=== PATIENT | female | born 1995 | race Caucasian/White ===

== ENCOUNTER 2016-09-28 20:03 | Emergency (ER) | payer SELFPAY ==
[~2016-09-28] VITALS: Ht 157.5 cm; Wt 46.6 kg
[~2016-09-28 20:03] MED LIST: AMOXIL400 MG/5 M OR; KEFLEX250 MG/5 M OR; NO HOME MEDS; TYLENOL OR; ZITHROMAX100 MG/5 M OR; ZITHROMAX500 MG PO
[2016-09-28] MEDS ORDERED: IBUPROFEN600 MG PO (20:17)
[2016-09-28] MEDS ORDERED: CLINDAMYCIN300 M1 PO (20:17)
[2016-09-28 20:25] VITALS: BP 140/81
== END 2016-09-28 20:25 | disposition home or self-care (01) | DRG 153 ==
LOC: ED 20:03
DX: H66.92 Otitis media, unspecified, left ear (principal); F17.210 Nicotine dependence, cigarettes, uncomplicated; H92.02 Otalgia, left ear

== ENCOUNTER 2017-06-28 14:04 | Emergency (ER) | payer SELFPAY ==
[~2017-06-28] VITALS: Ht 157.5 cm; Wt 42.0 kg
[~2017-06-28 14:04] MED LIST changes: +CLINDAMYCIN300 M1 PO; +IBUPROFEN600 MG PO
[2017-06-28 15:31] LABS: URINE BILIRUBIN - DIPSTICK NEGATIVE (NEGATIVE); URINE BLOOD DIPSTICK SMALL (NEGATIVE); URINE CLARITY CLEAR; URINE COLOR YELLOW; URINE GLUCOSE - DIPSTICK NEGATIVE (NEGATIVE); URINE KETONE NEGATIVE (NEGATIVE); URINE LEUK ESTERASE NEGATIVE (NEGATIVE); URINE NITRITE - DIPSTICK NEGATIVE (Negative); URINE PROTEIN - DIPSTICK NEGATIVE (NEG-TRACE); URINE SPECIFIC GRAVITY 1.015
[2017-06-28 15:31] LABS: HEMOGLOBIN 12.8 g/dl (12.0-16.0); IMMATURE GRANULOCYTES 0.2 % (0.0-1.0); MEAN CELL VOLUME 92.5 fL CALC (80.0-100.0); MEAN CORPUSCULAR HGB CONC 34.6 g/L CALC (32.0-36.0); NEUT# 3.16 thou/uL (2.00-7.15); RED CELL DISTRI WIDTH 12.1 % (11.5-15.5)
[2017-06-28 15:45] LABS: URINE SQUAMOUS EPITHELIAL CELL FEW EPI/hpf (0-FEW)
[2017-06-28 15:54] LABS: ALBUMIN 4.8 g/dL (3.2-5.0); ALKALINE PHOSPHATASE 59 u/l (38-126); AMYLASE 54 u/l (30-110); ANION GAP 17 (6-22 (CALC)); BILIRUBIN, TOTAL 1.6 mg/dL (0.0-1.4); BUN 15 mg/dL (7-17); BUN/CREATININE RATIO 24 (12-20 (CALC)); CALCIUM 10.5 mg/dL (8.4-10.2); CARBON DIOXIDE 24 mmol/l (22-30); CHLORIDE 107 mmol/l (95-108); CREATININE 0.7 mg/dL (0.5-1.0); GFR > 60 ML/MIN (>=60 (CALC)); GFR FOR AFR.AMER. > 60 ML/MIN (>=60 (CALC)); GLUCOSE 100 mg/dL (65-105); LIPASE 220 u/l (23-300); POTASSIUM 3.8 mmol/l (3.5-5.1); SGOT/AST 25 u/l (14-36); SGPT/ALT 29 u/l (9-52); SODIUM 144 mmol/l (137-146); TOTAL PROTEIN 7.3 g/dL (6.3-8.2)
[2017-06-28 18:02] VITALS: BP 109/57
== END 2017-06-28 18:05 | disposition home or self-care (01) | DRG 392 ==
LOC: ED 14:04
PROVIDERS: Emergency Medicine
DX: R10.84 Generalized abdominal pain (principal); F17.210 Nicotine dependence, cigarettes, uncomplicated
CPT/HCPCS: Q9967

== ENCOUNTER 2018-12-27 16:17 | Emergency (ER) | payer SELFPAY ==
[~2018-12-27] VITALS: Ht 157.5 cm; Wt 45.0 kg
[2018-12-27 17:25] VITALS: BP 120/70
== END 2018-12-27 17:25 | disposition home or self-care (01) | DRG 866 ==
LOC: ED 16:17
DX: B34.9 Viral infection, unspecified (principal); F17.200 Nicotine dependence, unspecified, uncomplicated

== ENCOUNTER 2021-03-21 11:58 | Emergency (ER) | payer OTHER ==
[~2021-03-21] VITALS: Ht 157.5 cm; Wt 44.5 kg
[2021-03-21] MEDS ORDERED: FLEXERIL5 M1 PO (12:58)
[2021-03-21 13:01] VITALS: BP 131/73
== END 2021-03-21 13:07 | disposition home or self-care (01) | DRG 552 ==
LOC: ED 11:58
DX: S16.1XXA Strain of muscle, fascia and tendon at neck level, initial encounter (principal); F17.200 Nicotine dependence, unspecified, uncomplicated; V43.52XA Car driver injured in collision with other type car in traffic accident, initial encounter